=== PATIENT | male | born 1960 | race Caucasian/White ===

== ENCOUNTER 2018-05-16 11:41 | Inpatient (IN) | payer BC, OTHER ==
[~2018-05-16] VITALS: Ht 193 cm; Wt 140.1 kg
--- NOTE | 2018-05-16 11:53 | NUR ---
PT ARRIVED VIA EMS WITH C/O RIGHT KNEE "LOOKING DEFORMED" PT WAS AMB ON DECK, SLIPPED, FELL BACK. DENIES PAIN. CMS INTACT.
--- NOTE | 2018-05-16 11:53 | NUR ---
DR SOW AT BEDSIDE TO EVAL PT
--- NOTE | 2018-05-16 13:24 | NUR ---
BREAK RN: PT CURRENTLY IN MRI.
--- NOTE | 2018-05-16 14:56 | NUR ---
PT BACK IN ROOM FROM MRI. DR SOW AT BEDSIDE TO RE-EVAL PT
[2018-05-16] MEDS ORDERED: SODIUM CHLORIDE FLUSH 10ML SYR IVF ONE (15:30)
[2018-05-16 15:45] LABS: BASOPHILS # (AUTO) 0.05 x10^3/uL (0-0.1); BASOPHILS % (AUTO) 0 % (0-1); EOSINOPHILS # (AUTO) 0.09 x10^3/uL (0-0.4); EOSINOPHILS % (AUTO) 1 % (1-7); LYMPHOCYTES # (AUTO) 2.23 x10^3/uL (1-3.4); LYMPHOCYTES % (AUTO) 18 % (22-44); MD NO; MEAN CORPUSCULAR HEMOGLOBIN 30.1 pg (27.5-34.5); MEAN CORPUSCULAR HGB CONC 34.1 g/dL (33.2-36.2); MEAN CORPUSCULAR VOLUME 88.3 fL (81-97); MEAN PLATELET VOLUME 8.1 fL (7.4-10.4); MONOCYTES # (AUTO) 0.62 x10^3/uL (0.2-0.8); MONOCYTES % (AUTO) 5 % (2-9); NEUTROPHILS # (AUTO) 9.27 x10^3/uL (1.8-6.8); NEUTROPHILS % (AUTO) 76 % (42-75); PLATELET COUNT 272 x10^3/uL (130-400); RED BLOOD COUNT 5.67 x10^6/uL (4.38-5.82); RED CELL DISTRIBUTION WIDTH 13.8 % (9.4-14.8)
[2018-05-16 15:56] LABS: ALBUMIN 4.1 g/dL (3.4-5.0); ANION GAP 7 mmol/L (5-15); CALCIUM 9.1 mg/dL (8.5-10.1); CHLORIDE 109 mmol/L (98-107); CREATININE 1.03 mg/dL (0.7-1.3)
--- NOTE | 2018-05-16 16:11 | NUR ---
PT PROVIDED WITH URINAL. NO OTHER NEEDS EXPRESSED AT THIS TIME.
--- NOTE | 2018-05-16 16:24 | NUR ---
DR HESTER AT BEDSIDE TO EVAL PT
[2018-05-16] MEDS ORDERED: ACETAMINOPHEN 325 MG TABLET PO PRN (16:30)
[2018-05-16] MEDS ORDERED: HYDROcodone/APAP 5/325 TABLET PO PRN (16:30)
[2018-05-16] MEDS ORDERED: HYDROmorphone 2 MG/ML, 1ML IV PRN (16:30)
[2018-05-16 16:32] LABS: INTERNATIONAL NORMALIZED RATIO 1.03 (0.93-1.1); PROTHROMBIN TIME 10.9 Seconds (9.6-11.5)
[2018-05-16] MEDS ORDERED: ENALAPRILAT 1.25 MG/ML, 2ML IV PRN (17:00)
[2018-05-16] MEDS ORDERED: hydrALAzine 20 MG/ML, 1ML IV PRN (17:00)
--- NOTE | 2018-05-16 17:10 | NUR ---
CALLED REPORT TO LIZZY SETHI. PT TO BE TRANSPORTED TO ROOM 433. POC DISCUSSED.
[2018-05-16] MEDS ORDERED: SODIUM CHLORIDE 0.9% IV PRN (18:00)
[2018-05-16] MEDS ORDERED: ENALAPRILAT IV PRN (18:00)
[2018-05-16 19:56] VITALS: BP 167/90
[2018-05-16] MEDS ORDERED: POTASSIUM CHLORIDE 20 MEQ in D5%-0.45% NACL 1,000 ML IV SCH (23:00)
[2018-05-17 02:21] VITALS: BP 174/97
[2018-05-17 05:11] VITALS: BP 159/86
[2018-05-17] MEDS ORDERED: BUPIVACAINE/PF 0.25% ONE (06:52)
[2018-05-17] MEDS ORDERED: EPINEPHRINE 1 MG/ML, 1ML ONE (06:52)
[2018-05-17] MEDS ORDERED: MIDAZOLAM 1 MG/ML, 2ML ONE (07:02)
[2018-05-17] MEDS ORDERED: FENTANYL PF 250 MCG/5ML ONE (07:02)
[2018-05-17] MEDS ORDERED: ROCURONIUM 10 MG/ML,10ML ONE (07:16)
[2018-05-17] MEDS ORDERED: CEFAZOLIN 1,000 MG ONE (07:16)
[2018-05-17] MEDS ORDERED: PROPOFOL 10 MG/ML, 20ML ONE (07:16)
[2018-05-17] MEDS ORDERED: ONDANSETRON 2MG/ML, 2ML ONE ×2 (07:16→09:15)
[2018-05-17] MEDS ORDERED: NEOSTIGMINE 1 MG/ML, 10ML ONE (07:16)
[2018-05-17] MEDS ORDERED: GLYCOPYRROLATE 0.2MG/1ML, 5ML ONE (07:16)
[2018-05-17] MEDS ORDERED: DEXAMETHASONE 4 MG/ML, 1ML ONE (07:16)
[2018-05-17] MEDS ORDERED: BUPIVACAINE/PF-EPI 0.25% 1:200K INFIL ONE (07:38)
[2018-05-17] MEDS ORDERED: FENTANYL PF 100 MCG/2ML ONE (09:24)
[2018-05-17] MEDS ORDERED: OXYcodone 5 MG/5 ML ORAL.SOL UDC ONE (09:25)
[2018-05-17] MEDS ORDERED: FENTANYL PF 100 MCG/2ML IV PRN (10:00)
[2018-05-17] MEDS ORDERED: OXYcodone 5 MG/5 ML ORAL.SOL UDC PO PRN ×2 (10:00)
[2018-05-17] MEDS ORDERED: ONDANSETRON ODT 8 MG PO PRN (10:00)
[2018-05-17] MEDS ORDERED: ONDANSETRON 2MG/ML, 2ML IV PRN (11:30)
[2018-05-17] MEDS ORDERED: ACETAMINOPHEN 325 MG TABLET PO PRN (11:30)
[2018-05-17] MEDS ORDERED: OXYcodone/APAP 5/325MG TABLET PO PRN (11:30)
[2018-05-17] MEDS ORDERED: KETOROLAC 30 MG/1 ML IV SCH (11:30)
[2018-05-17] MEDS ORDERED: POTASSIUM CHLORIDE 20 MEQ in D5%-0.45% NACL 1,000 ML IV SCH (11:30)
[2018-05-17] MEDS ORDERED: morphine SULFATE 10 MG/ML, 1ML IV PRN (11:30)
[2018-05-17] MEDS ORDERED: PROMETHAZINE 25 MG/ML, 1ML IM PRN (11:30)
[2018-05-17] MEDS ORDERED: OXYC5TAB3 PO (13:56)
[2018-05-17] MEDS ORDERED: ENOX40SY4 SQ (13:57)
[2018-05-17] MEDS ORDERED: DIAZ5TAB PO (13:58)
[2018-05-17] MEDS ORDERED: ONDA4TAB7 PO (13:58)
[2018-05-17 15:22] VITALS: BP 160/111
[2018-05-18] MEDS ORDERED: ENOXAPARIN 40 MG/0.4 ML SQ SCH (06:00)
== END 2018-05-17 16:50 | disposition home or self-care (01) | DRG 502 ==
LOC: ED 11:54 → EDIP 15:49 → 4NOR 17:37
PROVIDERS: ADMIT Orthopaedic Surgery; ATTEND Orthopaedic Surgery
PROC: 0LQQ0ZZ Repair Right Knee Tendon, Open Approach (ICD-10-PCS; principal; 2018-05-16)
DX: S76.111A Strain of right quadriceps muscle, fascia and tendon, initial encounter (principal); Y93.01 Activity, walking, marching and hiking; W01.0XXA Fall on same level from slipping, tripping and stumbling without subsequent striking against object, initial encounter; Y93.89 Activity, other specified; Y92.89 Other specified places as the place of occurrence of the external cause; Y99.8 Other external cause status; Z87.891 Personal history of nicotine dependence
CPT/HCPCS: 36415; 73564; J3490; 80048; 82040; 85025; 85610; 93005; G0378; J0171; J0690; J1100; J1885; J2250; J2405; J2704; J2710; J3010; J3480; Q0162